=== PATIENT | female | born 1990 | race Caucasian/White ===

== ENCOUNTER 2017-06-15 01:49 | Emergency (ER) | payer SELFPAY ==
[~2017-06-15] VITALS: Ht 165.1 cm; Wt 63.0 kg
[2017-06-15 04:23] VITALS: BP 103/60
== END 2017-06-15 04:23 | disposition home or self-care (01) ==
LOC: ER 02:10
DX: F10.129 Alcohol abuse with intoxication, unspecified (principal); F32.9 Major depressive disorder, single episode, unspecified; Y90.9 Presence of alcohol in blood, level not specified
CPT/HCPCS: 99283; Z7610